=== PATIENT | female | born 1995 | race Caucasian/White ===

== ENCOUNTER 2020-12-22 22:40 | Inpatient (IN) | payer MEDICARE, MEDICAID ==
[~2020-12-22] VITALS: Ht 189.2 cm; Wt 52.1 kg
[~2020-12-22 22:40] MED LIST: PROZ10 PO; QUET200T PO
[2020-12-23] MEDS ORDERED: SODIUM CHLORIDE 0.9% 2,000 ML IV ONE
[2020-12-23] MEDS ORDERED: LORazepam 2 MG/ML VIAL IM ONE
[2020-12-23] MEDS ORDERED: QUEtiapine FUMARATE 100 MG TABLET PO PRN (01:00)
[2020-12-23] MEDS ORDERED: ZOLPIDEM TARTRATE 10 MG TABLET PO PRN (01:00)
[2020-12-23 02:20] LABS: BASOPHILS % (AUTO) 0.5 % (0.0-2.0); EOSINOPHILS % (AUTO) 0.4 % (1.0-6.0); HEMOGLOBIN 12.6 g/dL (12.0-16.0); LYMPHOCYTES % (AUTO) 22.2 % (22.0-44.0); MEAN CORPUSCULAR HEMOGLOBIN 32.2 pg (26.0-34.0); MEAN CORPUSCULAR HGB CONC 33.2 G/dL (31.0-37.0); MEAN CORPUSCULAR VOLUME 97 fL (80-100); MONOCYTES % (AUTO) 10.7 % (2.0-9.0); NEUTROPHILS # (AUTO) 5.9 K/uL (1.8-7.7); NEUTROPHILS % (AUTO) 66.2 % (40.0-70.0); PLATELET COUNT (AUTO) 257 K/uL (150-450); RED BLOOD CELL COUNT(AUTO) 3.92 MIL/uL (4.00-5.20); RED CELL DISTRIBUTION WIDTH 13.3 % (11.5-14.5)
[2020-12-23 02:26] LABS: ANION GAP 12 mmol/L (8-16); CALCIUM, TOTAL 9.4 mg/dL (8.8-10.5); CARBON DIOXIDE 26 mmol/L (22-29); CHLORIDE 102 mmol/L (98-107); CREATININE 0.73 mg/dL (0.60-1.30); GLOMERULAR FILTR. RATE CALC > 60 mL/min (>60); GLUCOSE,RANDOM 85 mg/dL (70-110); POTASSIUM 4.4 mmol/L (3.5-5.1); SODIUM SERUM 140 mmol/L (136-145); UREA NITROGEN, BLOOD 8 mg/dL (7-18)
[2020-12-23 02:31] LABS: INR 1.1 (0.9-1.1); PROTHROMBIN TIME 11.2 SEC (9.4-11.6)
[2020-12-23 02:47] LABS: SALICYLATE < 2.8 mg/dL (2.8-20.0)
[2020-12-23 02:51] LABS: ALANINE AMINOTRANSFERASE 24 U/L (12-78); ALBUMIN 4.3 g/dL (3.4-5.0); ALKALINE PHOSPHATASE 70 U/L (46-116); ASPARTATE AMINOTRANSFERASE 14 U/L (15-37); BILIRUBIN,TOTAL 0.3 mg/dL (0.1-1.0); CREATINE KINASE, TOTAL ONLY 322 U/L (26-192); HCG,QUANTITATIVE < 1 mIU/mL (0-6); TOTAL PROTEIN, SERUM 8.2 g/dL (6.4-8.2)
[2020-12-23 02:52] LABS: ACETAMINOPHEN < 2 mcg/mL (10-30)
[2020-12-23 03:24] LABS: COVID AG,FIA SOURCE NASOPHARYNGEAL
[2020-12-23 04:10] LABS: APPEARANCE,URINE CLEAR (CLEAR); BILIRUBIN,URINE NEGATIVE (NEGATIVE); GLUCOSE, URINE (UA) NEGATIVE (NEGATIVE); KETONES,URINE NEGATIVE (NEGATIVE); LEUKOCYTE ESTERASE ,URINE NEGATIVE (NEGATIVE); NITRATE,URINE NEGATIVE (NEGATIVE); OCCULT BLOOD,URINE NEGATIVE (NEGATIVE); PROTEIN,URINE NEGATIVE (NEGATIVE); UROBILINOGEN,URINE 0.2 mg/dL (<=1.0)
[2020-12-23 04:14] LABS: AMPHET/METH SCREEN,URINE NEGATIVE (NEGATIVE); BARBITURATE SCREEN, URINE NEGATIVE (NEGATIVE); BENZODIAZEPINES SCREEN,URINE NEGATIVE (NEGATIVE); CANNABINOID SCREEN,URINE NEGATIVE (NEGATIVE); COCAINE SCREEN,URINE NEGATIVE (NEGATIVE); METHADONE SCREEN, URINE NEGATIVE (NEGATIVE); OPIATE SCREEN,URINE NEGATIVE (NEGATIVE)
[2020-12-23 04:42] LABS: PHENCYCLIDINE SCREEN,URINE NEGATIVE (NEGATIVE)
[2020-12-23 04:52] LABS: BACTERIA,URINE Few /HPF (None Seen); RBC,URINE 0-2 /HPF (0-2); SQUAMOUS EPITHELIAL CELL,UR Few /LPF (None Seen); WBC,URINE 0-2 /HPF (0-5)
[2020-12-23] MEDS ORDERED: DOCUSATE SODIUM 100 MG CAPSULE PO PRN ×2 (07:45→11:15)
[2020-12-23] MEDS ORDERED: PETROLATUM,WHITE 28 GM JELLY TP PRN ×2 (07:45→11:15)
[2020-12-23] MEDS ORDERED: ACETAMINOPHEN 325 MG TABLET PO PRN ×2 (07:45→11:15)
[2020-12-23] MEDS ORDERED: MAG HYDROX/AL HYDROX/SIMETH ES 30 ML SUSPENSION UDCUP PO PRN ×2 (07:45→11:15)
[2020-12-23] MEDS ORDERED: LOPERAMIDE HCL 2 MG CAPSULE PO PRN ×2 (07:45→11:15)
[2020-12-23] MEDS ORDERED: GuaiFENesin/D-METHORPHAN [SUGAR-FREE] 200-20MG/10 ML SYRUP UDCUP PO PRN ×2 (07:45→11:15)
[2020-12-23] MEDS ORDERED: CloNIDine HCL 0.1 MG TABLET PO PRN ×2 (07:45→11:15)
[2020-12-23] MEDS ORDERED: ONDANSETRON HCL 4 MG TABLET PO PRN ×2 (07:45→11:15)
[2020-12-23] MEDS ORDERED: IBUPROFEN 400 MG TABLET PO PRN ×2 (07:45→11:15)
[2020-12-23] MEDS ORDERED: NICOTINE 14 MG/24 HOUR PATCH TD PRN ×2 (07:45→11:15)
[2020-12-23] MEDS ORDERED: ALBUTEROL SULFATE HFA 90 MCG/PUFF 8 GM INHALER IH PRN ×2 (07:45→11:15)
[2020-12-23] MEDS ORDERED: MAGNESIUM HYDROXIDE SUSPENSION 30 ML UDCUP PO PRN (11:15)
[2020-12-23 11:28] VITALS: BP 89/54
[2020-12-23] MEDS ORDERED: INFLUENZA VIRUS VACCINE QVS 2020-21 (6MO+)/PF 60 MCG/0.5 ML SYRINGE IM ONE (12:15)
[2020-12-23 12:28] VITALS: BP 93/40
[2020-12-23 16:15] VITALS: BP 105/60
[2020-12-23] MEDS: CLINDAMYCIN HCL 300 MG CAPSULE PO SCH (16:27)
[2020-12-23] MEDS: FLUoxetine HCL 20 MG CAPSULE PO SCH (16:27)
[2020-12-23] MEDS: CEPHALEXIN MONOHYDRATE 500 MG CAPSULE PO SCH (16:28)
[2020-12-23] MEDS: QUEtiapine FUMARATE 100 MG TABLET PO SCH (20:19)
[2020-12-24] MEDS: CLINDAMYCIN HCL 300 MG CAPSULE PO SCH ×3 (00:16→16:10)
[2020-12-24] MEDS: CEPHALEXIN MONOHYDRATE 500 MG CAPSULE PO SCH ×3 (00:17→16:05)
[2020-12-24 00:39] VITALS: BP 104/62
[2020-12-24 08:34] VITALS: BP 106/66
[2020-12-24 08:46] LABS: CHOL/HDL RATIO 1.8 (3.9-5.7)
[2020-12-24] MEDS: FLUoxetine HCL 20 MG CAPSULE PO SCH (08:47)
[2020-12-24] MEDS: MAGNESIUM HYDROXIDE SUSPENSION 30 ML UDCUP PO PRN (12:15)
[2020-12-24] MEDS: LORazepam 2 MG TABLET PO PRN (12:15)
[2020-12-24 16:18] VITALS: BP 100/61
[2020-12-24] MEDS: QUEtiapine FUMARATE 100 MG TABLET PO SCH (20:37)
[2020-12-25 00:18] VITALS: BP 96/58
[2020-12-25] MEDS: CEPHALEXIN MONOHYDRATE 500 MG CAPSULE PO SCH ×4 (00:19→23:56)
[2020-12-25] MEDS: CLINDAMYCIN HCL 300 MG CAPSULE PO SCH ×4 (00:21→23:56)
[2020-12-25 08:39] VITALS: BP 100/68
[2020-12-25] MEDS: FLUoxetine HCL 20 MG CAPSULE PO SCH (08:39)
[2020-12-25] MEDS: LORazepam 2 MG TABLET PO PRN (09:15)
[2020-12-25] MEDS: MAGNESIUM HYDROXIDE SUSPENSION 30 ML UDCUP PO PRN (13:42)
[2020-12-25 16:15] VITALS: BP 108/63
[2020-12-25] MEDS: QUEtiapine FUMARATE 200 MG TABLET PO SCH (20:39)
[2020-12-26 05:22] VITALS: BP 115/68
[2020-12-26] MEDS: FLUoxetine HCL 20 MG CAPSULE PO SCH (08:34)
[2020-12-26] MEDS: CLINDAMYCIN HCL 300 MG CAPSULE PO SCH ×2 (08:34→16:05)
[2020-12-26] MEDS: CEPHALEXIN MONOHYDRATE 500 MG CAPSULE PO SCH ×2 (08:34→16:04)
[2020-12-26] MEDS: LORazepam 2 MG TABLET PO PRN (08:35)
[2020-12-26 08:51] VITALS: BP 104/52
[2020-12-26 16:13] VITALS: BP 107/55
[2020-12-26] MEDS: QUEtiapine FUMARATE 200 MG TABLET PO SCH (20:25)
[2020-12-27] MEDS: CEPHALEXIN MONOHYDRATE 500 MG CAPSULE PO SCH ×3 (00:13→15:59)
[2020-12-27] MEDS: CLINDAMYCIN HCL 300 MG CAPSULE PO SCH ×3 (00:13→15:58)
[2020-12-27 04:27] VITALS: BP 122/82
[2020-12-27 08:14] VITALS: BP 105/62
[2020-12-27] MEDS: FLUoxetine HCL 20 MG CAPSULE PO SCH (08:22)
[2020-12-27 16:28] VITALS: BP 125/79
[2020-12-27] MEDS: QUEtiapine FUMARATE 200 MG TABLET PO SCH (20:29)
[2020-12-28] MEDS: CLINDAMYCIN HCL 300 MG CAPSULE PO SCH ×2 (00:02→08:05)
[2020-12-28] MEDS: CEPHALEXIN MONOHYDRATE 500 MG CAPSULE PO SCH ×2 (00:02→08:05)
[2020-12-28 06:33] VITALS: BP 116/74
[2020-12-28] MEDS: FLUoxetine HCL 20 MG CAPSULE PO SCH (08:06)
[2020-12-28 09:03] VITALS: BP 140/80
[2020-12-28 10:13] LABS: COVID AG,FIA SOURCE NASAL SWAB
== END 2020-12-28 14:47 | disposition home or self-care (01) | DRG 885 ==
LOC: EMS 22:42 → B3A 12-23 01:00 → UNDOADMIN 12-23 01:00 → B2X 12-23 08:37
DX: F25.1 Schizoaffective disorder, depressive type (principal); E43 Unspecified severe protein-calorie malnutrition; M62.82 Rhabdomyolysis; Z68.1 Body mass index [BMI] 19.9 or less, adult; E86.0 Dehydration; Z79.899 Other long term (current) drug therapy; Z20.822 Contact with and (suspected) exposure to COVID-19; F41.9 Anxiety disorder, unspecified; I95.9 Hypotension, unspecified
CPT/HCPCS: 83605; 87426; 93005; 99291; G0480; G0481; J2060; J7030

== ENCOUNTER 2021-06-09 14:49 | Inpatient (IN) | payer MEDICARE, MEDICAID ==
[~2021-06-09] VITALS: Ht 165.1 cm; Wt 54.5 kg
[2021-06-09] MEDS ORDERED: HALOPERIDOL LACTATE 5 MG/ML VIAL IM ONE (16:15)
[2021-06-09] MEDS ORDERED: DiphenhydrAMINE HCL 50 MG/ML VIAL IM ONE (16:15)
[2021-06-09] MEDS ORDERED: LORazepam 2 MG/ML VIAL IM ONE (16:15)
[2021-06-09 16:30] LABS: AMPHET/METH SCREEN,URINE NEGATIVE (NEGATIVE); BARBITURATE SCREEN, URINE NEGATIVE (NEGATIVE); BENZODIAZEPINES SCREEN,URINE NEGATIVE (NEGATIVE); CANNABINOID SCREEN,URINE POSITIVE (NEGATIVE); COCAINE SCREEN,URINE POSITIVE (NEGATIVE); METHADONE SCREEN, URINE NEGATIVE (NEGATIVE); OPIATE SCREEN,URINE NEGATIVE (NEGATIVE)
[2021-06-09 16:31] LABS: PHENCYCLIDINE SCREEN,URINE NEGATIVE (NEGATIVE)
[2021-06-09] MEDS ORDERED: ZOLPIDEM TARTRATE 10 MG TABLET PO PRN (17:15)
[2021-06-09] MEDS ORDERED: HALOPERIDOL 5 MG TABLET PO PRN (17:15)
[2021-06-09 17:46] LABS: COVID AG,FIA SOURCE NASOPHARYNGEAL
[2021-06-09 21:49] VITALS: BP 113/51
[2021-06-10] MEDS ORDERED: ALBUTEROL SULFATE HFA 90 MCG/PUFF 8 GM INHALER IH PRN (06:30)
[2021-06-10] MEDS ORDERED: BENZOCAINE/MENTHOL LOZENGE PO PRN (06:30)
[2021-06-10] MEDS ORDERED: PETROLATUM,WHITE 28 GM JELLY TP PRN (06:30)
[2021-06-10] MEDS ORDERED: MAGNESIUM HYDROXIDE SUSPENSION 30 ML UDCUP PO PRN (06:30)
[2021-06-10] MEDS ORDERED: MAG HYDROX/AL HYDROX/SIMETH ES 30 ML SUSPENSION UDCUP PO PRN (06:30)
[2021-06-10] MEDS ORDERED: DOCUSATE SODIUM 100 MG CAPSULE PO PRN (06:30)
[2021-06-10] MEDS ORDERED: CloNIDine HCL 0.1 MG TABLET PO PRN (06:30)
[2021-06-10] MEDS ORDERED: LOPERAMIDE HCL 2 MG CAPSULE PO PRN (06:30)
[2021-06-10] MEDS ORDERED: ACETAMINOPHEN 325 MG TABLET PO PRN (06:30)
[2021-06-10] MEDS ORDERED: IBUPROFEN 600 MG TABLET PO PRN (06:30)
[2021-06-10] MEDS ORDERED: BACITRACIN 28 GM OINTMENT TP PRN (06:30)
[2021-06-10] MEDS ORDERED: OMEPRAZOLE 20 MG CAPSULE PO PRN (06:30)
[2021-06-10] MEDS ORDERED: ONDANSETRON HCL 4 MG TABLET PO PRN (06:30)
[2021-06-10 06:43] VITALS: BP 104/62
[2021-06-10] MEDS: LITHIUM CARBONATE 300 MG CAPSULE PO SCH ×2 (12:04→16:59)
[2021-06-10] MEDS: LORazepam 2 MG TABLET PO PRN ×2 (12:07→17:08)
[2021-06-10 16:16] VITALS: BP 140/92
[2021-06-11 03:18] VITALS: BP 132/89
[2021-06-11 08:38] VITALS: BP 90/49
[2021-06-11] MEDS: LITHIUM CARBONATE 300 MG CAPSULE PO SCH ×2 (08:47→17:22)
[2021-06-11 13:35] VITALS: BP 121/60
[2021-06-11] MEDS: LORazepam 2 MG TABLET PO PRN ×2 (13:59→19:03)
[2021-06-11 16:20] VITALS: BP 100/61
[2021-06-12 01:12] VITALS: BP 102/66
[2021-06-12 08:14] VITALS: BP 130/68
[2021-06-12] MEDS: LITHIUM CARBONATE 300 MG CAPSULE PO SCH (09:57)
[2021-06-12] MEDS: LORazepam 2 MG TABLET PO PRN (12:12)
== END 2021-06-12 15:10 | disposition home or self-care (01) | DRG 885 ==
LOC: EMS 14:51 → B3A 18:07
PROVIDERS: ADMIT Psychiatry & Neurology Psychiatry; ATTEND Psychiatry & Neurology Psychiatry
DX: F25.9 Schizoaffective disorder, unspecified (principal); R45.851 Suicidal ideations; F32.9 Major depressive disorder, single episode, unspecified; F41.9 Anxiety disorder, unspecified; G47.00 Insomnia, unspecified; K59.00 Constipation, unspecified; F29 Unspecified psychosis not due to a substance or known physiological condition; Z20.822 Contact with and (suspected) exposure to COVID-19; F19.10 Other psychoactive substance abuse, uncomplicated
CPT/HCPCS: 99291; J1200; J1630; J2060

== ENCOUNTER 2021-10-13 00:03 | Emergency (ER) | payer MEDICARE, OTHER ==
[~2021-10-13] VITALS: Ht 165.1 cm; Wt 54.5 kg
[2021-10-13 01:41] LABS: AMPHET/METH SCREEN,URINE POSITIVE (NEGATIVE); BARBITURATE SCREEN, URINE NEGATIVE (NEGATIVE); BENZODIAZEPINES SCREEN,URINE NEGATIVE (NEGATIVE); CANNABINOID SCREEN,URINE POSITIVE (NEGATIVE); COCAINE SCREEN,URINE NEGATIVE (NEGATIVE); METHADONE SCREEN, URINE NEGATIVE (NEGATIVE); OPIATE SCREEN,URINE NEGATIVE (NEGATIVE)
[2021-10-13 01:42] LABS: PHENCYCLIDINE SCREEN,URINE NEGATIVE (NEGATIVE)
[2021-10-13] MEDS ORDERED: QUEtiapine FUMARATE 100 MG TABLET PO ONE (02:00)
[2021-10-13 02:04] LABS: COVID AG,FIA SOURCE NASOPHARYNGEAL
[2021-10-13 06:00] VITALS: BP 142/56
== END 2021-10-13 06:38 | disposition home or self-care (01) ==
LOC: EMS 00:04
DX: F25.1 Schizoaffective disorder, depressive type (principal); F78.A9 Other genetic related intellectual disability; F15.10 Other stimulant abuse, uncomplicated; Z20.822 Contact with and (suspected) exposure to COVID-19; Z79.899 Other long term (current) drug therapy
CPT/HCPCS: 99284